=== PATIENT | male | born 1935 | race Caucasian/White ===

== ENCOUNTER 2022-03-06 10:43 | Inpatient (IN) ==
[2022-03-06] MEDS ORDERED: Ondansetron 4 mg VIAL 2 MG/ML 2 ml VIAL IV ONE (11:31)
[2022-03-06] MEDS ORDERED: Morphine 4 MG/ML VIAL (1 ml) IV ONE (11:31)
[2022-03-06] MEDS ORDERED: NS 0.9% 1000 ml BAG 1,000 ML IV ONE (11:32)
[2022-03-06 13:26] LABS: ABS Lymphocytes 1.8 10^3/ul (1.0-4.8); ABS Monocytes 0.6 10^3/ul (0-0.8); ABS Neutrophils 5.2 10^3/ul (1.5-7.7); Eosinophil % 0.1 %; Hematocrit 45 % (42-52); Hemoglobin 14.8 g/dL (14.0-18.0); Lymphocyte % 23.2 %; Mean Corpuscular HGB Conc 33 g/dL (31-36); Mean Corpuscular Hemoglobin 31 pg (27-31); Mean Corpuscular Volume 92 fL (80-94); Mean Platelet Volume 11.3 fL (7.4-10.4); Nucleated Red Blood Cells % 0.2; Platelet Count 73 10^3/uL (150-450); Red Blood Count 4.85 10^6 /uL (4.18-5.48); Red Cell Distribution Width 15 % (10-15); White Blood Count 7.7 10^3/uL (3.5-10.8)
[2022-03-06 14:01] LABS: Albumin 3.5 g/dL (3.2-5.2); Albumin/Globulin Ratio 1.4 (1-3); C Reactive Protein 26.46 mg/L (<8.01); Globulin 2.5 g/dL (2-4); Potassium 3.7 mmol/L (3.5-5.0); Total Bilirubin 0.6 mg/dL (0.2-1.0); eGFR CKD-EPI 36.4 (>60)
[2022-03-06] MEDS ORDERED: Iodixanol (CONTRAST) 320 MG/ML 100 ML SDV IV ONE (14:09)
[2022-03-06] MEDS ORDERED: Ondansetron 4 mg VIAL 2 MG/ML 2 ml VIAL IV PRN (15:56)
[2022-03-06] MEDS ORDERED: Piperacillin/Tazobac 3.375 GM BAG ONE (16:09)
[2022-03-06] MEDS: Piperacillin/Tazobac ADVAN 3.375 GM in NS 0.9% 100 ml BAG 100 ML IV SCH (16:11)
[2022-03-06] MEDS ORDERED: Lidocaine 2% PF 5 ML VIAL ONE (16:26)
[2022-03-06] MEDS ORDERED: Phenylephrine IV 10 MG/ML 1 ml VIAL ONE (16:26)
[2022-03-06] MEDS ORDERED: Rocuronium 50 mg VIAL 10 mg/ml 5 ml VIAL (50 mg) ONE (16:26)
[2022-03-06] MEDS ORDERED: Propofol 10 MG/ML 20 ML BTL ONE (16:26)
[2022-03-06] MEDS ORDERED: fentaNYL 100 mcg/2 ml 50 MCG/ML VIAL ONE ×4 (16:26→22:00)
[2022-03-06] MEDS ORDERED: Succinylcholine 200 mg VIAL 20 mg/ml 10 ml VIAL (200 mg) ONE (16:26)
[2022-03-06 16:32] LABS: Urine Appearance Clear; Urine Bilirubin Negative (Negative); Urine Blood Negative (Negative); Urine Color Yellow; Urine Glucose Negative (Negative); Urine Ketones 1+ (Negative); Urine Nitrite Negative (Negative); Urine Protein 1+(30 mg/dL) (Negative); Urine Urobilinogen Negative (Negative)
[2022-03-06 16:39] LABS: Urine Bacteria Absent (Absent); Urine Red Blood Cell Trace(0-2/hpf) (Absent); Urine Squamous Epithelial Cell Present (Absent); Urine White Blood Cell Trace(0-5/hpf) (Absent)
[2022-03-06] MEDS ORDERED: Famotidine IV 10 MG/ML 2 ml VIAL (20 mg) IV ONE (16:52)
[2022-03-06] MEDS ORDERED: Sodium Citrate/Citric Acid LIQ 15 ML UDC PO ONE (16:52)
[2022-03-06] MEDS ORDERED: Buffered Lidocaine 1% SYRIN 1 ml INTRADERM ONE (16:52)
[2022-03-06] MEDS ORDERED: Bupivacaine 0.25% w/EPI 10 ML SDV ONE (16:57)
[2022-03-06] MEDS ORDERED: Lactated Ringers 1000 ml BAG 1,000 ML IV SCH (17:00)
[2022-03-06] MEDS ORDERED: Sodium Citrate/Citric Acid LIQ 15 ML UDC ONE (17:51)
[2022-03-06] MEDS ORDERED: Famotidine IV 10 MG/ML 2 ml VIAL (20 mg) ONE (17:51)
[2022-03-06] MEDS ORDERED: Dexamethasone IV 4 MG/ML VIAL 1 ml VIAL ONE (18:51)
[2022-03-06] MEDS ORDERED: Ondansetron 4 mg VIAL 2 MG/ML 2 ml VIAL ONE (18:51)
[2022-03-06] MEDS ORDERED: fentaNYL 100 mcg/2 ml 50 MCG/ML VIAL IV PRN (20:58)
[2022-03-06] MEDS ORDERED: Naloxone 0.4 mg VIAL 0.4 mg/ml 1 ml VIAL IV PRN (20:58)
[2022-03-06] MEDS ORDERED: Prochlorperazine 5 mg/ml 2 ml VIAL (10 mg) IV PRN (20:58)
[2022-03-06] MEDS ORDERED: Morphine 4 MG/ML VIAL (1 ml) ONE (21:34)
[2022-03-06] MEDS: Morphine 4 MG/ML VIAL (1 ml) IV PRN ×4 (21:37→21:56)
[2022-03-06] MEDS: NS 0.9% 1000 ml BAG 1,000 ML IV SCH (23:50)
[2022-03-06] MEDS: HYDROmorphone 1 MG/1 ML SYRINGE IV SLOW PU PRN (23:52)
[2022-03-07] MEDS: Acetaminophen IV 1 GM/100ML 650 MG/65 ML BAG IV SCH ×4 (00:08→21:46)
[2022-03-07] MEDS: Piperacillin/Tazobac ADVAN 3.375 GM in NS 0.9% 100 ml BAG 100 ML IV SCH ×4 (01:13→16:34)
[2022-03-07] MEDS: HYDROmorphone 1 MG/1 ML SYRINGE IV SLOW PU PRN ×5 (03:06→18:31)
[2022-03-07 05:59] LABS: ABS Lymphocytes 3.3 10^3/ul (1.0-4.8); ABS Monocytes 0.8 10^3/ul (0-0.8); ABS Neutrophils 7.9 10^3/ul (1.5-7.7); Hematocrit 39 % (42-52); Hemoglobin 12.7 g/dL (14.0-18.0); Lymphocyte % 27.5 %; Mean Corpuscular HGB Conc 33 g/dL (31-36); Mean Corpuscular Hemoglobin 30 pg (27-31); Mean Corpuscular Volume 92 fL (80-94); Mean Platelet Volume 10.6 fL (7.4-10.4); Nucleated Red Blood Cells % 0.1; Platelet Count 90 10^3/uL (150-450); Red Blood Count 4.19 10^6 /uL (4.18-5.48); Red Cell Distribution Width 15 % (10-15); White Blood Count 12.1 10^3/uL (3.5-10.8)
[2022-03-07 06:37] LABS: Calcium 7.3 mg/dL (8.6-10.3); Potassium 4.8 mmol/L (3.5-5.0); eGFR CKD-EPI 38.4 (>60)
[2022-03-07] MEDS: NS 0.9% 1000 ml BAG 1,000 ML IV SCH ×2 (08:41→16:42)
[2022-03-07] MEDS: CMCS:Dutasteride 0.5 mg CAP (NF) PO SCH (16:37)
[2022-03-08] MEDS: Piperacillin/Tazobac ADVAN 3.375 GM in NS 0.9% 100 ml BAG 100 ML IV SCH ×3 (01:09→17:58)
[2022-03-08] MEDS: NS 0.9% 1000 ml BAG 1,000 ML IV SCH (01:09)
[2022-03-08] MEDS: HYDROmorphone 1 MG/1 ML SYRINGE IV SLOW PU PRN (01:30)
[2022-03-08] MEDS: Acetaminophen IV 1 GM/100ML 650 MG/65 ML BAG IV SCH ×4 (05:29→22:40)
[2022-03-08 06:56] LABS: ABS Lymphocytes 3.1 10^3/ul (1.0-4.8); ABS Neutrophils 6.8 10^3/ul (1.5-7.7); Eosinophil % 0.3 %; Hematocrit 33 % (42-52); Hemoglobin 11.2 g/dL (14.0-18.0); Lymphocyte % 28.1 %; Mean Corpuscular HGB Conc 34 g/dL (31-36); Mean Corpuscular Hemoglobin 31 pg (27-31); Mean Corpuscular Volume 92 fL (80-94); Mean Platelet Volume 9.8 fL (7.4-10.4); Nucleated Red Blood Cells % 0.1; Platelet Count 138 10^3/uL (150-450); Red Blood Count 3.58 10^6 /uL (4.18-5.48); Red Cell Distribution Width 15 % (10-15); White Blood Count 10.9 10^3/uL (3.5-10.8)
[2022-03-08 07:14] LABS: Calcium 7.1 mg/dL (8.6-10.3); Potassium 4.3 mmol/L (3.5-5.0); eGFR CKD-EPI 43.5 (>60)
[2022-03-08] MEDS: CMCS:Dutasteride 0.5 mg CAP (NF) PO SCH (09:26)
[2022-03-08] MEDS: Enoxaparin 40 MG/0.4 ML SYR SUBCUT SCH (09:26)
[2022-03-08] MEDS: Tiotropium Brom/Olodaterol MDI INH SCH (11:56)
[2022-03-09] MEDS: Piperacillin/Tazobac ADVAN 3.375 GM in NS 0.9% 100 ml BAG 100 ML IV SCH (01:08)
[2022-03-09] MEDS: Acetaminophen IV 1 GM/100ML 650 MG/65 ML BAG IV SCH ×3 (06:01→22:32)
[2022-03-09 06:14] LABS: ABS Eosinophils 0.2 10^3/ul (0-0.6); ABS Lymphocytes 3.2 10^3/ul (1.0-4.8); ABS Neutrophils 5.1 10^3/ul (1.5-7.7); Eosinophil % 2.1 %; Hematocrit 32 % (42-52); Hemoglobin 10.5 g/dL (14.0-18.0); Lymphocyte % 33.5 %; Mean Corpuscular HGB Conc 33 g/dL (31-36); Mean Corpuscular Hemoglobin 31 pg (27-31); Mean Corpuscular Volume 92 fL (80-94); Mean Platelet Volume 8.9 fL (7.4-10.4); Platelet Count 173 10^3/uL (150-450); Red Blood Count 3.43 10^6 /uL (4.18-5.48); Red Cell Distribution Width 16 % (10-15); White Blood Count 9.5 10^3/uL (3.5-10.8)
[2022-03-09] MEDS: Tiotropium Brom/Olodaterol MDI INH SCH (07:25)
[2022-03-09] MEDS: CMCS:Dutasteride 0.5 mg CAP (NF) PO SCH (10:58)
[2022-03-09] MEDS: Enoxaparin 40 MG/0.4 ML SYR SUBCUT SCH (10:59)
[2022-03-09 11:00] LABS: Calcium 7.5 mg/dL (8.6-10.3); Potassium 4.5 mmol/L (3.5-5.0)
[2022-03-09 11:06] LABS: eGFR CKD-EPI 42.5 (>60)
[2022-03-10] MEDS: Acetaminophen IV 1 GM/100ML 650 MG/65 ML BAG IV SCH ×2 (05:18→13:55)
[2022-03-10] MEDS: Tiotropium Brom/Olodaterol MDI INH SCH ×2 (06:57→06:59)
[2022-03-10 07:40] LABS: Hematocrit 34 % (42-52); Hemoglobin 11.4 g/dL (14.0-18.0); Mean Corpuscular HGB Conc 33 g/dL (31-36); Mean Corpuscular Hemoglobin 31 pg (27-31); Mean Corpuscular Volume 92 fL (80-94); Mean Platelet Volume 8.7 fL (7.4-10.4); Platelet Count 249 10^3/uL (150-450); Red Blood Count 3.74 10^6 /uL (4.18-5.48); Red Cell Distribution Width 16 % (10-15); White Blood Count 8.8 10^3/uL (3.5-10.8)
[2022-03-10 07:57] LABS: Calcium 7.5 mg/dL (8.6-10.3); Potassium 4.2 mmol/L (3.5-5.0); eGFR CKD-EPI 54.2 (>60)
[2022-03-10 08:49] LABS: ABS Eosinophils 0.2 10^3/ul (0-0.6); ABS Lymphocytes 3.1 10^3/ul (1.0-4.8); ABS Neutrophils 4.5 10^3/ul (1.5-7.7); Eosinophil % 2.4 %; Lymphocyte % 35.1 %; Nucleated Red Blood Cells % 0.1
[2022-03-10] MEDS: Enoxaparin 40 MG/0.4 ML SYR SUBCUT SCH (08:53)
[2022-03-10] MEDS: CMCS:Dutasteride 0.5 mg CAP (NF) PO SCH (08:53)
[2022-03-10 15:27] VITALS: BP 132/78
== END 2022-03-10 11:00 | DRG 329 ==
LOC: ED 10:43 → EDHOLD 15:56 → AA 17:38 → MED 23:01 → SSU 03-07 10:47
PROVIDERS: ADMIT Surgery; ATTEND Surgery

== ENCOUNTER 2022-03-10 16:27 | Inpatient (IN) ==
[2022-03-10] MEDS ORDERED: Enoxaparin 40 MG/0.4 ML SYR SUBCUT SCH (17:00)
[2022-03-11 08:11] VITALS: BP 153/75
[2022-03-11] MEDS ORDERED: Enoxaparin 40 MG/0.4 ML SYR SUBCUT SCH (09:00)
[2022-03-11] MEDS ORDERED: Tiotropium Brom/Olodaterol MDI INH SCH (09:00)
[2022-03-11] MEDS ORDERED: CMCS: Dutasteride 0.5 mg CAP (NF) PO SCH (09:00)
== END 2022-03-11 13:35 | disposition home or self-care (01) | DRG 395 ==
LOC: SSU 16:27
PROVIDERS: ADMIT Surgery; ATTEND Surgery